=== PATIENT | male | born 1940 | race Caucasian/White ===

== ENCOUNTER → 2018-03-07 | Outpatient (CLI) | payer MEDICARE, OTHER ==
[~2018-03-07] MED LIST: BREO ELLIPTA 21 EACH IH; FINA5TAB4 PO; FURO20TA3 PO; IOHEXOL 300 MG/ML 100ML VIAL. IV ONE; METF500T16 PO; METO100T7 PO; PROAIR HFA8.5 GM INH; RAMI2.5C2 PO; RANO10002 PO; TAMS0.4C2 PO; TRAM50TA PO; WARF2TAB96 PO
--- NOTE | 2018-03-07 17:44 | KCIC ---
CT scan of the abdomen and pelvis without and with contrast (CT urogram) 03/07/2018 CLINICAL HISTORY: Gross hematuria. TECHNIQUE: Unenhanced, contiguous, 3 mm axial sections were obtained through the abdomen and pelvis. After the intravenous administration of 95 cc of Omnipaque 300, contiguous, 0.625 mm axial sections were obtained through the abdomen and pelvis. 2 mm reconstructed axial, sagittal and coronal images were obtained. Additionally volume rendered 3-D reconstructed images of the kidneys ureters and urinary bladder were obtained. One or more of the following individualized dose reduction techniques were utilized for this study: 1. Automated exposure control. 2. Adjustment of the mA and/or kV according to patient size. 3. Use of iterative reconstruction technique. FINDINGS: No previous imaging studies are available for comparison. Images through the lung bases demonstrate mild to moderate cardiomegaly. There is a small left pleural effusion. Lower lobe atelectasis and /or infiltrate is seen. Dependent subsegmental atelectasis is seen involving the right lower lobe. The unenhanced CT images demonstrate multiple calcified granulomas throughout the liver and spleen. No renal or ureteral calculus is noted. On the postcontrast images the liver, spleen, pancreas, adrenal glands and kidneys are within normal limits. Atherosclerotic calcification of the abdominal aorta is seen. The abdominal aorta tapers normally. The gallbladder is well-distended. No free fluid or free air is seen within the abdomen. Air and stool is seen throughout the colon. Multiple diverticula are seen involving the colon. No inflammatory changes are seen in the adjacent fat. On the delayed images through the abdomen and pelvis excretion of contrast by both kidneys is seen. The ureters are opacified with contrast, left greater than right. No abnormality of either ureter is definitely seen. Images through the pelvis demonstrate the urinary bladder distended with contrast and urine. The urinary bladder has a diffusely thickened wall which may reflect hypertrophy related to bladder outlet obstruction. The prostate gland is enlarged likely related to BPH. Calcifications are seen within the pelvis consistent with phleboliths. No free fluid is seen. Degenerative changes are seen involving the lower thoracic and throughout the lumbar spine and both hips. IMPRESSION: 1. No acute abnormality is seen. 2. The urinary bladder has a diffusely thickened wall which may reflect hypertrophy due to bladder outlet obstruction related to BPH. Electronically signed by: Vishal Chavez MD (03/07/2018 5:40 PM) [id number]
== END | disposition home or self-care (01) ==
LOC: KCIC CT 11:22
PROVIDERS: ATTEND Urology
DX: N32.0 Bladder-neck obstruction (principal); I87.8 Other specified disorders of veins; I70.0 Atherosclerosis of aorta; K82.8 Other specified diseases of gallbladder; K57.30 Diverticulosis of large intestine without perforation or abscess without bleeding; J98.11 Atelectasis
CPT/HCPCS: 74178; 82565; Q9967